=== PATIENT | male | born 1985 | race African-American/Black ===

== ENCOUNTER 2017-03-23 13:24 | Emergency (ER) | payer MEDICAID ==
[~2017-03-23] VITALS: Ht 167.6 cm; Wt 82.0 kg
[2017-03-23] MEDS ORDERED: LIDOCAINE HCL 1% 20ML VIAL (Pyxis) INJ MC ONE (15:00)
[2017-03-23] MEDS ORDERED: IBUPROFEN 800MG TABLET PO ONE (15:00)
[2017-03-23] MEDS ORDERED: BACITRACIN ZINC OINT UDPKT TOP ONE (15:00)
[2017-03-23 15:22] VITALS: BP 135/78
== END 2017-03-23 16:16 | disposition home or self-care (01) ==
LOC: ER 15:14
DX: L02.31 Cutaneous abscess of buttock (principal)
CPT/HCPCS: 10060; 99283; J3490; X7700; Z7610

== ENCOUNTER 2017-03-26 18:55 | Emergency (ER) | payer MEDICAID | END 2017-03-26 20:40 | disposition left against medical advice (07) | LOC: ER 18:55 | DX: Z53.21 Procedure and treatment not carried out due to patient leaving prior to being seen by health care provider (principal) ==

== ENCOUNTER 2017-10-30 16:09 | Emergency (ER) | payer MEDICAID ==
[~2017-10-30] VITALS: Ht 167.6 cm; Wt 77.0 kg
[2017-10-30] MEDS ORDERED: KETOROLAC 30MG/ML VIAL IM ONE (19:15)
[2017-10-30 19:19] VITALS: BP 140/95
== END 2017-10-30 21:16 | disposition left against medical advice (07) ==
LOC: ER 16:30
DX: L05.91 Pilonidal cyst without abscess (principal); F17.200 Nicotine dependence, unspecified, uncomplicated; Z88.0 Allergy status to penicillin
CPT/HCPCS: 96372; 99283; J1885

== ENCOUNTER 2017-11-01 16:47 | Emergency (ER) | payer MEDICAID ==
[~2017-11-01] VITALS: Ht 167.6 cm; Wt 70.0 kg
[2017-11-01 18:18] VITALS: BP 124/78
[2017-11-01] MEDS ORDERED: ACETAMINOPHEN WITH CODEINE 300/30MG TABLET PO ONE (22:45)
== END 2017-11-01 23:24 | disposition home or self-care (01) ==
LOC: ER 17:27
DX: L02.31 Cutaneous abscess of buttock (principal); Z88.0 Allergy status to penicillin
CPT/HCPCS: 99283

== ENCOUNTER 2018-04-28 14:47 | Emergency (ER) | payer MEDICAID ==
[~2018-04-28] VITALS: Ht 167.6 cm; Wt 81.8 kg
[2018-04-28 15:44] VITALS: BP 131/90
== END 2018-04-28 17:23 | disposition home or self-care (01) ==
LOC: ER 14:47
DX: G51.0 Bell's palsy (principal); Z72.0 Tobacco use
CPT/HCPCS: 99283

== ENCOUNTER 2018-12-08 18:40 | Emergency (ER) | payer MEDICAID ==
[~2018-12-08] VITALS: Ht 167.6 cm; Wt 84.0 kg
[2018-12-08] MEDS ORDERED: PREDNISONE 20MG TABLET PO ONE (21:30)
[2018-12-08 22:05] VITALS: BP 136/93
== END 2018-12-08 22:05 | disposition home or self-care (01) ==
LOC: ER 18:40
DX: G51.0 Bell's palsy (principal); F17.200 Nicotine dependence, unspecified, uncomplicated; Z88.0 Allergy status to penicillin
CPT/HCPCS: 99283; J7512; Z7610

== ENCOUNTER 2022-08-23 12:13 | Emergency (ER) | payer MEDICAID ==
[~2022-08-23] VITALS: Ht 175.3 cm; Wt 75.0 kg
[2022-08-23 12:18] VITALS: BP 130/80
== END 2022-08-23 16:42 | disposition left against medical advice (07) ==
LOC: ER 12:13
DX: Z53.21 Procedure and treatment not carried out due to patient leaving prior to being seen by health care provider (principal)